=== PATIENT | female | born 1930 | race Caucasian/White ===

== ENCOUNTER 2017-08-07 09:50 | Emergency (ER) | payer MEDICARE ==
[~2017-08-07] VITALS: Ht 162.6 cm; Wt 70.0 kg
[2017-08-07 09:56] VITALS: BP 168/69; PULSE 83; RESP 16; TEMP 97.6; O2SAT 95
[2017-08-07] MEDS ORDERED: ASPI-516 CHEW (10:05)
[2017-08-07] MEDS ORDERED: LOSA25TA PO (10:05)
[2017-08-07] MEDS ORDERED: HYDR12.57 PO (10:05)
[2017-08-07] MEDS ORDERED: METO25TA3 PO (10:05)
[2017-08-07] MEDS ORDERED: SILVER NITR/POTASSIUM NITRATE APPLICATORS TOPICAL ONE (10:15)
--- NOTE | 2017-08-07 10:30 | PD ---
HPI Chief Complaint: Skin Problem Time Seen by Provider: 10:02 Travel History International Travel<30 days: No Contact w/Intl Traveler<30days: No Traveled to known affect area: No History of Present Illness HPI 87-year-old female presents emergency Department with a lesion to her right ankle. Patient states that approximately 2 days ago, she was at a conference saw that her ankle was bleeding. Patient states that she does have varicose pains. Patient states this never happened before. Patient would urgent care today and the evaluated her they recommended she go to the emergency department for evaluation. States that the area was a "arterial bleed". Patient denies use of blood thinners except for daily aspirin. Patient drinks at least one alcoholic drink daily. PFSH Past Medical History Hypertension: Yes Social History Alcohol Use: No Tobacco Use: No Substance Use: No Allergies-Medications (Allergen,Severity, Reaction): Coded Allergies: No Known Allergies (Unverified , 08/07/17) Reported Meds & Prescriptions Reported Meds & Active Scripts Active Reported Aspirin 81 Mg Chew 81 Mg CHEW DAILY Hydrochlorothiazide 12.5 Mg Cap Unknown Dose PO DAILY Metoprolol Tartrate 25 Mg Tab Unknown Dose PO BID Losartan (Losartan Potassium) 25 Mg Tab Unknown Dose PO DAILY Review of Systems Except as stated in HPI: all other systems reviewed are Neg Physical Exam Narrative GENERAL: Well-developed well-nourished in no apparent distress SKIN: Focused skin assessment warm/dry. HEAD: Atraumatic. Normocephalic. EYES: Pupils equal and round. No scleral icterus. No injection or drainage. ENT: No nasal bleeding or discharge. Mucous membranes pink and moist. NECK: Trachea midline. No JVD. CARDIOVASCULAR: Regular rate and rhythm. No murmur appreciated. RESPIRATORY: No accessory muscle use. Clear to auscultation. Breath sounds equal bilaterally. GASTROINTESTINAL: Abdomen soft, non-tender, nondistended. Hepatic and splenic margins not palpable. MUSCULOSKELETAL: No obvious deformities. No clubbing. No cyanosis. No edema. Medial aspect of right ankle- small 2mm roverto to skin, oozing blood NEUROLOGICAL: Awake and alert. No obvious cranial nerve deficits. Motor grossly within normal limits. Normal speech. PSYCHIATRIC: Appropriate mood and affect; insight and judgment normal. Data Data Last Documented VS Vital Signs Date Time Temp Pulse Resp B/P (MAP) Pulse Ox O2 Delivery O2 Flow Rate FiO2 08/07/17 09:56 97.6 83 16 168/69 (102) 95 Orders Orders Silver Nitrate Applicators (Silver Nitra (08/07/17 10:15) Ed Discharge Order (08/07/17 11:45) MDM Medical Decision Making Medical Screen Exam Complete: Yes Emergency Medical Condition: Yes Differential Diagnosis Varicose vein laceration, arterial bleed, venous bleed Narrative Course 87-year-old female presents emergency Department with a lesion to her right ankle. Patient states that approximately 2 days ago, she was at a conference saw that her ankle was bleeding. Patient states that she does have varicose pains. Patient states this never happened before. Patient would urgent care today and the evaluated her they recommended she go to the emergency department for evaluation. States that the area was a "arterial bleed". Patient denies use of blood thinners except for daily aspirin. Patient drinks at least one alcoholic drink daily. Patient states that she has had a previous episode similar to this however, she was a teenager when this occurred. Vital signs stable. Physical exam findings consistent with a varicose vein laceration. Silver nitrate and pressure attempted to control the bleeding. Patient walked around the ED without rebleeding. Advised that if the site began bleeding again to apply pressure and elevate. Advised to reduce activity that included walking or excessive pressure on her foot. I recommended to keep the current dressing on until Wednesday when she may replace the dressing. Advised to keep area clean and dry. Wound care instructions given. Return to the emergency department for uncontrolled bleeding and follow-up with primary care physician on Wednesday as discussed. Advised to avoid aspirin and alcohol consumption and to evaluated by her primary care physician. Diagnosis Primary Impression: Laceration of vein Referrals: Vascular Surgeon Additional Instructions: Follow up with your primary care physician as discussed If your symptoms persist or worsen, return to the emergency department. Keep area clean and dry until Wednesday. You may change dressings on Wednesday. You may use [id number]-gyructl triple antibiotic ointments on Wednesday If bleeding starts again, apply pressure and elevate the area. Use compression socks or socks If he developed increased redness, swelling, or pain return to the emergency department. Avoid aspirin and alcohol consumption until your follow-up with her primary care physician. Disposition: 01 DISCHARGE HOME Condition: Stable Connie Brandt Aug 07, 2017 10:29
== END 2017-08-07 11:58 | disposition home or self-care (01) ==
LOC: PHEFT 09:50
DX: S95 Injury of blood vessels at ankle and foot level (principal); I10 Essential (primary) hypertension; Z79.82 Long term (current) use of aspirin; Z72.89 Other problems related to lifestyle
CPT/HCPCS: 12001